=== PATIENT | female | born 1970 | race Caucasian/White ===

== ENCOUNTER 2018-04-29 22:47 | Emergency (ER) | payer BC ==
[2018-04-29 22:54] VITALS: BP 101/65; PULSE 80; TEMP 97.8; BMI 25.4
--- NOTE | 2018-04-30 00:08 | PDOC ---
History of Present Illness - General Chief Complaint: Respiratory Stated Complaint: SOB Time Seen by Provider: 04/30/18 00:07 History Source: Patient - History of Present Illness Initial Comments: 04/30/18 02:48 48 year old female c/o midsternal pleuritic pain after singing several hours 4 days ago. since then oatient has been having heaviness to breathing. no pmhx denies SOB, diaphoresis, ocp use, recent travel, prolonged sitting Past History - Past Medical History Allergies/Adverse Reactions: Allergies Allergy/AdvReac Type Severity Reaction Status Date / Time belladonna alkaloids Allergy Severe Hives Verified 04/30/18 01:47 pecan nut Allergy Verified 04/29/18 22:55 walnut Allergy Verified 04/29/18 22:55 Home Medications: Ambulatory Orders Albuterol 0.083% Nebulizer Luna [Ventolin 0.083% Nebulizer Soln -] 1 neb NEB ONCE PRN #25 vial 04/30/18 COPD: No - Suicide/Smoking/Psychosocial Hx Smoking History: Never smoked Have you smoked in the past 12 months: No Information on smoking cessation initiated: No Hx Alcohol Use: No Drug/Substance Use Hx: No *Physical Exam - Vital Signs Last Vital Signs Temp Pulse Resp BP Pulse Ox 97.8 F 80 16 101/65 100 04/29/18 22:52 04/29/18 22:52 04/29/18 22:52 04/29/18 22:52 04/29/18 22:52 - Physical Exam General Appearance: Yes: Appropriately Dressed Respiratory/Chest: positive: Lungs Clear, Normal Breath Sounds Cardiovascular: positive: Regular Rate Moderate Sedation - Procedure Monitoring Vital Signs: Procedure Monitoring Vital Signs Temperature 97.8 F 04/29/18 22:52 Pulse Rate 80 04/29/18 22:52 Respiratory Rate 16 04/29/18 22:52 Blood Pressure 101/65 04/29/18 22:52 O2 Sat by Pulse Oximetry (%) 100 04/29/18 22:52 ED Treatment Course - LABORATORY CBC & Chemistry Diagram: 04/30/18 01:45 04/30/18 01:45 Medical Decision Making - Medical Decision Making 04/30/18 03:03 patient reports feeling better after albuterol dose. will d/c home *DC/Admit/Observation/Transfer Diagnosis at time of Disposition: Pleuritic chest pain - Discharge Dispostion Disposition: HOME - Prescriptions Prescriptions: Albuterol 0.083% Nebulizer Luna [Ventolin 0.083% Nebulizer Soln -] 1 neb NEB ONCE PRN #25 vial PRN Reason: Cough - Referrals Referrals: Mary Grossman [Primary Care Provider] - Call tomorrow - Patient Instructions Additional Instructions: please follow up with your doctor Additional Instructions: * Please call your personal physician to report your Emergency Department visit and to report your progress, if any. * If there is no improvement in symptoms in 2 days call your physician. * Return to the Emergency Department for any worsening symptoms. - Post Discharge Activity Forms/Work/School Notes: Back to Work
[2018-04-30] MEDS ORDERED: ALBUTEROL SO4 0.083% IH SOL 2.5 MG/3 ML VIAL.NEB. NEB ONE ×2 (00:29→01:49)
[2018-04-30 01:54] LABS: BASO % 2.1 % (0-2.0); EOS % 8.9 % (0-4.5); HEMATOCRIT 39.7 % (32.4-45.2); HEMOGLOBIN 14.1 GM/dL (10.7-15.3); LYMPH % 28.2 % (8-40); MCHC 35.4 g/dl (32.0-36.0); MEAN CELL VOLUME 90.2 fl (80-96); MEAN PLT VOLUME 8.5 fl (7.5-11.1); MONO % 12.9 % (3.8-10.2); NEUT % 47.9 % (42.8-82.8); PLATELET COUNT 255 K/MM3 (134-434); RBC 4.41 M/mm3 (3.60-5.2); WHITE BLOOD COUNT 6.5 K/mm3 (4.0-10.0)
[2018-04-30 01:56] LABS: URINE APPEARANCE SLCLOUDY; URINE BILIRUBIN NEGATIVE (<2.0 mg/dL); URINE COLOR LTYELLOW; URINE GLUCOSE (UA) NEGATIVE (NEGATIVE); URINE KETONE NEGATIVE (NEGATIVE); URINE LEUK ESTERASE NEGATIVE (NEGATIVE); URINE NITRITE NEGATIVE (NEGATIVE); URINE PROTEIN NEGATIVE (NEGATIVE); URINE UROBILINOGEN NEGATIVE mg/dL (0.2-1.0)
[2018-04-30 02:06] LABS: CALCIUM OXALATE CRYSTALS RARE /hpf (NONE SEEN); EPI CELLS FEW /HPF (FEW); INR 0.94 (0.83-1.09); PROTHROMBIN TIME (PATIENT) 11.1 SEC (9.7-13.0); URINE BACTERIA RARE /hpf (NONE SEEN); URINE HYALINE CAST 1 /lpf; URINE MUCUS RARE
[2018-04-30 02:19] LABS: ALBUMIN 3.4 g/dl (3.4-5.0); ALK PHOS 56 U/L (45-117); ANION GAP 4 MMOL/L (8-16); BILIRUBIN,TOTAL 0.1 mg/dL (0.2-1); BLOOD UREA NITROGEN 26 mg/dL (7-18); CALCIUM 8.3 mg/dL (8.5-10.1); CHLORIDE 105 mmol/L (98-107); CO2 28 mmol/L (21-32); CREATININE 1.3 mg/dL (0.55-1.3); GLUCOSE,RANDOM 87 mg/dL (74-106); MAGNESIUM 2.1 mg/dL (1.8-2.4); POTASSIUM 4.2 mmol/L (3.5-5.1); SGOT/AST 18 U/L (15-37); SGPT/ALT 18 U/L (13-61); SODIUM 138 mmol/L (136-145); TOT PROT 7.7 g/dl (6.4-8.2)
--- NOTE | 2018-04-30 09:41 | EKG ---
Test Reason : Blood Pressure : / mmHG Vent. Rate : 066 BPM Atrial Rate : 066 BPM P-R Int : 158 ms QRS Dur : 086 ms QT Int : 418 ms P-R-T Axes : 069 048 031 degrees QTc Int : 438 ms NORMAL SINUS RHYTHM NORMAL ECG NO PREVIOUS ECGS AVAILABLE Confirmed by LESLIE MARIE, REAGAN ([id number]) on 04/30/2018 9:41:20 AM Referred By: Confirmed By:REAGAN NELSON MD
== END 2018-04-30 03:14 | disposition home or self-care (01) ==
LOC: JER 22:47
DX: R10.84 Generalized abdominal pain (principal); T78.1XXA Other adverse food reactions, not elsewhere classified, initial encounter; Z91.018 Allergy to other foods
CPT/HCPCS: 36415; 71046-TC-FY; 80053; 81003; 81015; 82550; 83735; 84484; 84703; 85025; 85379; 85610; 93005; 93010; 99281-25; 99283-25

== ENCOUNTER 2018-05-02 23:56 | Emergency (ER) | payer BC ==
--- NOTE | 2018-05-03 00:21 | PDOC ---
Attending Attestation - Resident Resident Name: Javed Day - ED Attending Attestation I have performed the following: I have examined & evaluated the patient, The case was reviewed & discussed with the resident, I agree w/resident's findings & plan - HPI HPI: 05/03/18 03:03 Pt states that she ate a cookie with nuts in it; she has nut allergy where her tongue swells. States that she freaked out, called EMS, vomited once in the ambulance. States that she feels abd/suprapubic pain at this time. - Physicial Exam PE: 05/03/18 03:09 Agree with resident exam. Pt has no coarse breath sounds nor does she has wheezing. Pt has no fever and she has no throat swelling or tongue swelling and she has no voice changes. - Medical Decision Making 05/03/18 03:12 We will watch patient till the AM; we will treat with benadryl, H2 aman as well as decadron oral. 05/03/18 05:47 Pt is vastly improved and she will be going home with her .
[2018-05-03 00:25] VITALS: BMI 28.3
--- NOTE | 2018-05-03 00:34 | PDOC ---
History of Present Illness - General Stated Complaint: ABDOMINAL PAIN Time Seen by Provider: 05/03/18 00:18 History Source: Patient, Old Records Exam Limitations: No Limitations - History of Present Illness Initial Comments: HPI: 48 y/o female BIBEMS to [facility] complaining of abdominal pain after possible allergic reaction. States she ate a cookie with walnuts, to which she has a known allergy. She then felt her tongue swell, her mouth began to itch, and she developed a migrating pain that run up and down [her] throat. She then had a solid BM before calling 911. Did not take any medication prior to EMS arrival. Vomited once in the ambulance. In the department, the pt is now complaining of suprapubic tenderness and global fatigue. Denies noisy breathing, difficulty swallowing, urinary symptoms, or vaginal discharge. Of note, the pt was seen in this department on 04/30/2018 for a sore throat after singing. Was discharged home after an albuterol treatment. Medical Hx: - Remote h/o of gonorrhea at age 21 Past History - Past Medical History Allergies/Adverse Reactions: Allergies Allergy/AdvReac Type Severity Reaction Status Date / Time belladonna alkaloids Allergy Severe Hives Verified 05/03/18 00:19 pecan nut Allergy Verified 05/03/18 00:19 walnut Allergy Verified 05/03/18 00:19 Home Medications: Ambulatory Orders Albuterol 0.083% Nebulizer Luna [Ventolin 0.083% Nebulizer Soln -] 1 neb NEB ONCE PRN #25 vial 04/30/18 Epinephrine [Epipen] 0.3 mg IJ PRN PRN #1 auto.injct 05/03/18 COPD: No - Suicide/Smoking/Psychosocial Hx Smoking History: Never smoked Have you smoked in the past 12 months: No Hx Alcohol Use: No Drug/Substance Use Hx: No Review of Systems - Review of Systems Able to Perform ROS?: Yes Comments:: In addition to that documented in the HPI above, the additional ROS was obtained : Constitutional: Denies fevers or chills Eyes: Denies vision changes ENMT: Per HPI CV: Denies chest pain Resp: Denies SOB GI: Endorses vomiting. Denies diarrhea : Denies painful urination MSK: Denies recent trauma Skin: Denies new rashes Neuro: Denies new numbness or tingling or weakness Endocrine: Denies polyuria Heme: Denies bleeding or bruising *Physical Exam - Physical Exam Comments: Constitutional: Well-developed, well-nourished female in no acute distress or obvious discomfort. Found lying left lateral recumbent position on [employer] table. Alert and oriented x4. Answered all questions appropriately and completely. Speech was non-labored, non-pressured. Head: Normocephalic. No obvious external signs of trauma. Eyes: Sclerae white. EARS: Hearing grossly intact. NOSE: No nasal discharge. THROAT: Oral cavity and pharynx normal. No inflammation, swelling, exudate, or lesions. Neck: Supple, trachea is midline. Cardiovascular: Regular rate and regular rhythm. No murmur, rubs, clicks, or gallops. Peripheral pulses: Radial pulses full. Respiratory: Breathing unlabored. Equal chest rise and fall. Clear to auscultation bilaterally. No stridor, no wheezing, no rhonchi. Gastrointestinal: abdomen is soft, non-tender, non-distended. No hepatosplenemegaly. No pulsatile masses. No overlying skin lesions or obvious signs of trauma. Neuro: Alert and oriented. Moving all four extremities spontaneously. Gait normal; observed walking through the department unassisted without difficulty. Skin: Warm, dry, and intact. No bruising, rashes, or other lesions. : No R or L CVA tenderness. Psych: Affect: appropriate. Mood: normal. Female Pelvic: External genitalia unremarkable. Speculum exam with normal appearing whitish vaginal discharge. Vaginal wall mucosa is unremarkable. Cervix visualized and is unremarkable (closed in appearance without any protruding material). Bimanual exam without cervical motion tenderness, adnexal tenderness or any masses appreciated. RN chaperoned exam. ED Treatment Course - LABORATORY CBC & Chemistry Diagram: 05/03/18 01:09 05/03/18 01:09 Medical Decision Making - Medical Decision Making *Reviewed vital signs, nursing notes, and prior visit documentation (if available). 48 y/o female presenting with abdominal pain after possible allergic reaction to walnuts. Low suspicion for anaphylaxis or shock. Vitals unremarkable for tachycardia but borderline hypotension. Will repeat to further evaluate. Physical exam as described above. Pelvic exam performed with suprapubic nature of pain, but found to be unremarkable. Will obtain CBC, CMP, Lipase, Beta-Quant , UA, and urine culture to further evaluate. CBC revealed leukocytosis, which is a upward trend from 3 days ago. Suspect reactionary. Low suspicion for acute infection given sudden onset of symptoms and likely source of allergen. CMP unremarkable for electrolyte derangement. LFTs not elevated. BUN mildly elevated, but downtrended from three days ago. Low suspicion for renal pathology. Possibly secondary to mild dehydration. UA unremarkable for pyuria, leukocyte esterase, or nitrites. Low suspicion for UTI. Culture pending. Will monitor pts condition. 05/03/18 05:48 Pt re-evaluated. Reports feeling better. Denies trouble breathing or abdominal pain. Auscultation unchanged from previous; CTAB, No hypoxia or respiratory distress observed. Suspect mild allergic reaction. Will prescribe epi-pen and encourage outpatient follow up. Pt expressed verbal understanding and agreement with plan to discharge home. *DC/Admit/Observation/Transfer Diagnosis at time of Disposition: Allergic reaction Qualifiers: Encounter type: initial encounter Qualified Code(s): T78.40XA - Allergy, unspecified, initial encounter - Discharge Dispostion Disposition: HOME Condition at time of disposition: Stable Decision to Admit order: No - Prescriptions Prescriptions: Epinephrine [Epipen] 0.3 mg IJ PRN PRN #1 auto.injct PRN Reason: Allergic Reaction - Referrals - Patient Instructions Printed Discharge Instructions: DI for Food Allergy Additional Instructions: You were seen today for stomach pain after a possible allergic reaction. Your symptoms improved after you received medication in the ED. You were then observed for several hours without return of your symptoms. I have sent a prescription for an epi-pen to your pharmacy. You should fill this prescription. You should follow with your primary care doctor within the next 3-5 days to make sure you are healing. Go to the nearest emergency department if your condition worsens or you feel like you need additional emergency evaluation. Print Language: DIVEHI - Post Discharge Activity
[2018-05-03] MEDS ORDERED: FAMOTIDINE 20 MG/50 ML IVPB 20 MG/50 ML MG IVPB ONE ×2 (00:54→01:13)
[2018-05-03] MEDS ORDERED: MAG HYDROX/AL HYDROX/SIMETH 30 ML UNIT-DOSE CUP PO ONE (00:55)
[2018-05-03] MEDS ORDERED: MAG HYDROX/AL HYDROX/SIMETH 30 ML UNIT-DOSE CUP ONE (01:14)
[2018-05-03 01:17] LABS: BASO % 0.5 % (0-2.0); EOS % 1.7 % (0-4.5); HEMOGLOBIN 13.3 GM/dL (10.7-15.3); LYMPH % 6.3 % (8-40); MCHC 35.1 g/dl (32.0-36.0); MEAN CELL VOLUME 91.2 fl (80-96); MEAN PLT VOLUME 8.6 fl (7.5-11.1); MONO % 6.8 % (3.8-10.2); NEUT % 84.7 % (42.8-82.8); PLATELET COUNT 226 K/MM3 (134-434); RBC 4.17 M/mm3 (3.60-5.2); RDW 12.2 % (11.6-15.6); WHITE BLOOD COUNT 13.7 K/mm3 (4.0-10.0)
[2018-05-03 01:42] LABS: URINE APPEARANCE CLEAR; URINE BILIRUBIN NEGATIVE (<2.0 mg/dL); URINE COLOR LTYELLOW; URINE GLUCOSE (UA) 1+ (NEGATIVE); URINE KETONE NEGATIVE (NEGATIVE); URINE LEUK ESTERASE NEGATIVE (NEGATIVE); URINE NITRITE NEGATIVE (NEGATIVE); URINE PROTEIN NEGATIVE (NEGATIVE); URINE UROBILINOGEN NEGATIVE mg/dL (0.2-1.0)
[2018-05-03 01:54] LABS: ALBUMIN 3.3 g/dl (3.4-5.0); ALK PHOS 47 U/L (45-117); ANION GAP 8 MMOL/L (8-16); BILIRUBIN,TOTAL 0.1 mg/dL (0.2-1); BLOOD UREA NITROGEN 22 mg/dL (7-18); CALCIUM 8.5 mg/dL (8.5-10.1); CHLORIDE 105 mmol/L (98-107); CO2 26 mmol/L (21-32); GLUCOSE,RANDOM 129 mg/dL (74-106); POTASSIUM 3.9 mmol/L (3.5-5.1); SGOT/AST 22 U/L (15-37); SGPT/ALT 16 U/L (13-61); SODIUM 139 mmol/L (136-145); TOT PROT 7.2 g/dl (6.4-8.2)
[2018-05-03] MEDS ORDERED: DEXAMETHASONE LIQUID 0.5 MG/5 ML 240 ML BULK BOTTLE PO ONE (02:54)
[2018-05-03] MEDS ORDERED: diphenhydrAMINE HCL 25 MG CAPSULE (FP) PO ONE ×2 (02:54→03:09)
[2018-05-03] MEDS ORDERED: DEXAMETHASONE SOD PHOSPHATE 10 MG/1 ML VIAL ONE (03:08)
[2018-05-03 06:34] VITALS: BP 101/75; PULSE 75; TEMP 97.8
== END 2018-05-03 06:34 | disposition home or self-care (01) ==
LOC: JER 23:56
PROC: 3E033GC Introduction of Other Therapeutic Substance into Peripheral Vein, Percutaneous Approach (ICD-10-PCS; principal; 2018-05-02)
DX: T78.40XA Allergy, unspecified, initial encounter (principal); Z91.018 Allergy to other foods
CPT/HCPCS: 36415; 80053; 81003; 83690; 84702; 85025; 87086; 99282-25